=== PATIENT | male | born 2000 | race Caucasian/White ===

== ENCOUNTER → 2019-07-29 | Outpatient (CLI) | payer BC, OTHER ==
[2019-07-29 18:11] LABS: APPEARANCE, URINE CLEAR (CLEAR); BACTERIA, URINE AUTO NEGATIVE (NEGATIVE); BILIRUBIN, URINE AUTO NEGATIVE (NEGATIVE); BLOOD, URINE BLOOD NEGATIVE (NEGATIVE); COLOR, URINE YELLOW (YELLOW); GLUCOSE, URINE (UA) AUTO NEGATIVE (NEGATIVE); KETONE, URINE AUTO NEGATIVE (NEGATIVE); LEUKOCYTE ESTERASE, URINE AUTO NEGATIVE (NEGATIVE); MUCUS, URINE SMALL (NEGATIVE); NITRITE, URINE AUTO NEGATIVE (NEGATIVE); PROTEIN, URINE AUTO NEGATIVE (NEGATIVE); RBC, URINE AUTO 3 /HPF (0-3); SPECIFIC GRAVITY URINE AUTO 1.019 (1.002-1.035); SQUAMOUS EPITHELIAL CELL UR AU 0 /HPF (0-6); UROBILINOGEN, URINE AUTO 0.2 mg/dL (0.0-2.0); WBC, URINE AUTO 0 /HPF (0-3)
[2019-07-29 18:25] LABS: BASO % 0.5 % (0.0-1.0); EOS # 0.1 10^3/uL (0.0-0.5); EOS % 2.2 % (0.0-3.0); HEMATOCRIT 46.1 % (42.0-52.0); HEMOGLOBIN 15.8 g/dl (13.5-17.5); LYMPH # 1.9 10^3/uL (1.5-5.0); LYMPH % 32.7 % (24.0-44.0); MEAN CORPUSCULAR HEMOGLOBIN 30.2 pg (27.0-33.0); MEAN CORPUSCULAR HGB CONC 34.3 g/dl (32.0-36.5); MEAN CORPUSCULAR VOLUME 88.1 fl (80.0-96.0); MONO # 0.6 10^3/uL (0.0-0.8); MONO % 10.2 % (0.0-5.0); NEUTROPHILS # 3.2 10^3/uL (1.5-8.5); NEUTROPHILS % 54.1 % (36.0-66.0); PLATELET COUNT, AUTOMATED 237 10^3/uL (150-450); RED BLOOD COUNT 5.23 10^6/uL (4.30-6.10); WHITE BLOOD COUNT 5.9 10^3/uL (4.0-10.0)
[2019-07-29 18:44] LABS: ALBUMIN 4.2 GM/DL (3.2-5.2); ALT/SGPT 74 U/L (12-78); BILIRUBIN,TOTAL 0.4 MG/DL (0.2-1.0); BLOOD UREA NITROGEN 15 MG/DL (7-18); CALCIUM LEVEL 9.3 MG/DL (8.5-10.1); CARBON DIOXIDE LEVEL 27 MEQ/L (21-32); CHLORIDE LEVEL 105 MEQ/L (98-107); CREATININE FOR GFR 0.75 MG/DL (0.70-1.30); FREE T4 1.03 NG/DL (0.78-1.33); GLUCOSE, FASTING 83 MG/DL (70-100); POTASSIUM SERUM 4.7 MEQ/L (3.5-5.1); SODIUM LEVEL 140 MEQ/L (136-145); TOTAL PROTEIN 7.9 GM/DL (6.4-8.2)
[2019-07-29 18:45] LABS: CREATININE, URINE 99.5 MG/DL; MALB URINE SIEMENS 5.8 MG/L; MAU/CREAT RATIO 5.8 MCG/MG (0.0-30.0)
[2019-07-29 19:05] LABS: HEMOGLOBIN A1c 4.8 %
== END ==
LOC: M WUC 14:14
PROVIDERS: ATTEND Family Medicine
DX: R00.2 Palpitations (principal); E66.9 Obesity, unspecified; Z68.30 Body mass index [BMI] 30.0-30.9, adult; Z83.3 Family history of diabetes mellitus; E04.1 Nontoxic single thyroid nodule

== ENCOUNTER → 2019-08-01 | Outpatient (CLI) | payer OTHER ==
--- NOTE | 2019-08-03 19:14 | HOLTMON ---
[facility] Test Date: 2019-08-01 Pat Name: MONI CASTELLANOS Department: Room: - Gender: Male Radiopharmacist: Christie Taylor/BULL JAQUEZ : 2000 Requested By: Marco VILLARREAL Order Number: [id number] Reading MD: Nael Ta Interpretive Statements FATHER-DM/HTN MOTHER-HTN One recorded diary entry indicated palpitations: rhythm was sinus. Heart rate variability was normal. There was no significant ectopy: one PAC and one PVC. No significant ST events or pauses. No atrial fibrillation was seen. Unremarkable Holter monitor. Electronically Signed on 08-03-2019 19:13:49 EST by Nael Ta
== END ==
LOC: M EKG 10:06
PROVIDERS: ATTEND Family Medicine
DX: I51.9 Heart disease, unspecified (principal)

== ENCOUNTER → 2020-02-10 | Outpatient (CLI) | payer OTHER ==
--- NOTE | 2020-02-10 17:55 | REP ---
REASON: Possible thyroid nodule. PRIORS: None. Right lobe of the thyroid gland measures 5 x 1.5 x 1.5 cm. Left lobe measures 4.3 x 1.4 x 1.2 cm. The isthmus measures 3 mm. No cystic or solid masses are seen in either lobe, right or left. The thyroid parenchymal echo pattern appears to be homogeneous. IMPRESSION: No abnormality noted.
== END ==
LOC: M PLAIMG 13:08
PROVIDERS: ATTEND Family Medicine
DX: E04.1 Nontoxic single thyroid nodule (principal)